=== PATIENT | female | born 1995 | race Caucasian/White ===

== ENCOUNTER 2017-06-13 19:04 | Emergency (ER) | payer BC, OTHER ==
[2017-06-13] MEDS ORDERED: ACETAMINOPHEN 325 MG TABLET PO ONE (20:35)
--- NOTE | 2017-06-13 20:39 | ER Document Report ---
ED Neck/Back Problem - General Chief Complaint: Back Pain Stated Complaint: BACK PAIN Time Seen by Provider: 06/13/17 20:34 Notes: 21-year-old female patient 11 weeks complaining of diffuse back pain. Pain is located in her thoracic and lumbar spine. Paraspinally. Denies any trauma. Denies any fever, chills, sweats. States that the pain in the middle of her back sometimes radiates up into her touch has wall at the back. Denies any shortness of breath. Denies any leg pain. No prior history of blood clots. Does not smoke. No family history of DVT or PE. - HPI Patient complains to provider of: Pain Onset: Last week Timing: Waxing and waning - Related Data Allergies/Adverse Reactions: No Known Allergies Allergy (Unverified 06/13/17 19:07) Past Medical History - General Information source: Patient - Social History Smoking Status: Never Smoker Cigarette use (# per day): No Frequency of alcohol use: None Drug Abuse: None Lives with: Spouse/Significant other Family History: None - Past Medical History Cardiac Medical History: Reports: None Pulmonary Medical History: Reports: None Neurological Medical History: Reports: None Endocrine Medical History: Reports: None Renal/ Medical History: Reports: None Malignancy Medical History: Reports: None GI Medical History: Reports: None Musculoskeltal Medical History: Reports None Review of Systems - Review of Systems Constitutional: denies: Fever, Malaise, Weakness Cardiovascular: denies: Chest pain, Palpitations, Heart racing, Dyspnea, Syncope , Dizziness Respiratory: Hurts to breathe. denies: Cough, Short of breath, Wheezing Gastrointestinal: denies: Abdominal pain, Diarrhea, Nausea, Vomiting Genitourinary: denies: Burning, Dysuria, Discharge, Flank pain, Hematuria Female Genitourinary: . denies: Vaginal discharge, Vaginal bleeding Musculoskeletal: Back pain, Muscle pain, Muscle stiffness Skin: No symptoms reported Neurological/Psychological: No symptoms reported Physical Exam - Vital signs Vitals: Temp Pulse Resp BP Pulse Ox 98.3 F 90 18 119/65 100 06/13/17 19:43 06/13/17 19:43 06/13/17 19:43 06/13/17 19:43 06/13/17 19:43 Interpretation: Normal - General General appearance: Appears well, Alert - HEENT Head: Normocephalic, Atraumatic Eyes: Normal Pupils: PERRL - Respiratory Respiratory status: No respiratory distress Chest status: Nontender Breath sounds: Normal Chest palpation: Normal - Cardiovascular Rhythm: Regular Heart sounds: Normal auscultation Murmur: No - Abdominal Inspection: Normal Distension: No distension Bowel sounds: Normal Tenderness: Nontender Organomegaly: No organomegaly - Back Back: Normal, Tender. No: Vertebra tenderness Notes: She does have some mild paraspinal tenderness mid thoracic spine all the way down to the lumbar paraspinal muscles bilaterally. No point tenderness of the vertebral processes. No obvious step-offs. - Extremities General upper extremity: Normal inspection, Nontender, Normal color, Normal ROM , Normal temperature General lower extremity: Normal inspection, Nontender, Normal color, Normal ROM , Normal temperature, Normal weight bearing. No: Brad's sign - Neurological Neuro grossly intact: Yes Cognition: Normal Orientation: AAOx4 Fertile Coma Scale Eye Opening: Spontaneous Fertile Coma Scale Verbal: Oriented Laura Coma Scale Motor: Obeys Commands Laura Coma Scale Total: 15 Speech: Normal Motor strength normal: LUE, RUE, LLE, RLE Sensory: Normal - Psychological Associated symptoms: Normal affect, Normal mood - Skin Skin Temperature: Warm Skin Moisture: Dry Skin Color: Normal Course - Re-evaluation Re-evalutation: 06/13/17 20:38 Is a well-appearing 21-year-old female with no past medical history who is 11 weeks . Complaining of some back pain. Advised patient that due to the fact that she is in her first trimester she should avoid taking any thing other than Tylenol. Do not feel compelled at this time to order any x-rays which would expose the fetus to radiation. Explained this to the patient that I do not feel patient needs x-rays at this time and she seems to comprehend this logic. Will give her some Tylenol, check her urine. Advised her to follow -up with her regular doctor. 06/13/17 21:07 Urinalysis shows possible UTI. In the setting of will elect to treat at this time with Macrobid. Patient advised to take all the medications as prescribed. - Vital Signs Vital signs: Temp Pulse Resp BP Pulse Ox 98.3 F 90 18 119/65 100 06/13/17 19:43 06/13/17 19:43 06/13/17 19:43 06/13/17 19:43 06/13/17 19:43 - Laboratory Laboratory results interpreted by me: 06/13/17 20:34 Urine Ketones TRACE H Urine Urobilinogen 2.0 H Ur Leukocyte Esterase MODERATE H Urine Ascorbic Acid 40 H Discharge - Discharge Clinical Impression: Back pain Qualifiers: Back pain location: low back pain Chronicity: acute Back pain laterality: bilateral Sciatica presence: without sciatica Qualified Code(s): M54.5 - Low back pain Urinary tract infection Qualifiers: Urinary tract infection type: site unspecified Hematuria presence: without hematuria Qualified Code(s): N39.0 - Urinary tract infection, site not specified Condition: Good Disposition: HOME, SELF-CARE Instructions: Low Back Pain ([facility]), Urinary Tract Infection ([facility]), Nitrofurantoin ([facility]) Prescriptions: Nitrofurantoin/Nitrofuran Mac [Macrobid 100 mg Capsule] 1 tab PO BID #20 capsule Forms: Return to Work
[2017-06-13 20:57] LABS: APPEARANCE,URINE CLOUDY; BILIRUBIN,URINE NEGATIVE (NEGATIVE); COLOR,URINE YELLOW; GLUCOSE, URINE NEGATIVE (NEGATIVE); KETONES,URINE TRACE mg/dL (NEGATIVE); LEUKOCYTE ESTERASE,URINE MODERATE (NEGATIVE); NITRITE,URINE NEGATIVE (NEGATIVE); PROTEIN,URINE NEGATIVE (NEGATIVE)
[2017-06-13] MEDS ORDERED: NITROFURANTOIN MONOHYD/M-CRYST 100 MG CAPSULE PO ONE (21:09)
[2017-06-13 21:26] VITALS: BP 113/58
== END 2017-06-13 21:26 | disposition home or self-care (01) ==
LOC: ER 19:04
DX: O23.41 Unspecified infection of urinary tract in pregnancy, first trimester (principal); O26.891 Other specified pregnancy related conditions, first trimester; R31.9 Hematuria, unspecified; R07.1 Chest pain on breathing; O99.89 Other specified diseases and conditions complicating pregnancy, childbirth and the puerperium; M54.6 Pain in thoracic spine; M54.5 Low back pain; Z3A.11 11 weeks gestation of pregnancy
CPT/HCPCS: 99283; 87086; 81001; J8499

== ENCOUNTER 2017-08-08 21:15 | Emergency (ER) | payer BC, OTHER ==
--- NOTE | 2017-08-08 23:49 | ER Document Report ---
ED General - General Chief Complaint: Vaginal Bleeding Stated Complaint: VAGINAL BLEEDING Time Seen by Provider: 08/08/17 23:40 Notes: Patient is a 21-year-old female presents with complaint of some vaginal spotting and . She is approximately 2 weeks . This is her first . She is on vitamins. She does not smoke or drink or do drugs. She says her blood type is A+. Patient says that she was helping her do some work around the house. She went to use the bathroom and when she wiped she noticed very small amount of blood. She has had no further bleeding. No abdominal pain. No abnormal vaginal discharge. No dysuria. No fevers. No other complaints at this time. She has had multiple ultrasounds during her which have shown an IUP. [facility]. TRAVEL OUTSIDE OF THE [place] IN LAST 30 DAYS: No - Related Data Allergies/Adverse Reactions: No Known Allergies Allergy (Unverified 06/13/17 19:07) Past Medical History - Social History Smoking Status: Never Smoker Frequency of alcohol use: None Drug Abuse: None Family History: None Renal/ Medical History: Denies: Hx Peritoneal Dialysis Review of Systems - Review of Systems Notes: My Normal Review Basic REVIEW OF SYSTEMS: CONSTITUTIONAL : Denies fever, chills, or sweats. Denies recent illness. RESPIRATORY: Denies cough, cold, or chest congestion. Denies shortness of breath, difficulty breathing, or wheezing. GASTROINTESTINAL: Denies abdominal pain. Denies nausea, vomiting, or diarrhea. Denies constipation. Last BM: GENITOURINARY: Denies difficulty urinating, painful urination, burning, frequency, or blood in urine. FEMALE GENITOURINARY: Some vaginal spotting. LMP: 18 weeks MUSCULOSKELETAL: Denies neck or back pain or joint pain or swelling. SKIN: Denies rash or skin lesions. NEUROLOGICAL: Denies altered mental status or loss of consciousness. Denies headache. Denies weakness or paralysis or loss of use of either side. Denies problems with gait or speech. Denies sensory or motor loss. ALL OTHER SYSTEMS REVIEWED AND NEGATIVE. Physical Exam - Vital signs Vitals: Temp Pulse Resp BP Pulse Ox 98.4 F 99 16 115/63 99 08/08/17 21:23 08/08/17 21:23 08/08/17 21:23 08/08/17 21:23 08/08/17 21:23 - Notes Notes: General Appearance: Well nourished, alert, cooperative, no acute distress, no obvious discomfort. Well-appearing. Vitals: reviewed, See vital signs table. Eyes: PERRL, EOMI, Conjuctiva clearmegaly Lungs: No wheezing, No rales, No rhonci, No accessory muscle use, good air exchange bilaterally. Heart: Normal rate, Regular rythm, No murmur, no rub Abdomen: Normal BS, soft, No rigidity, No abdominal tenderness, No guarding, no rebound, bedside ultrasound shows intrauterine with a heart rate of 164 bpm. Good movement. Extremities: strength 5/5 in all extremities, good pulses in all extremities, no swelling or tenderness in the extremities, no edema. Skin: warm, dry, appropriate color, no rash Neuro: speech clear, oriented x 3, normal affect, responds appropriately to questions. Course - Re-evaluation Re-evalutation: 08/08/17 23:58 Patient looks well. Bedside ultrasound shows intrauterine with good movement. She is 18 weeks by date. I do not feel any further workup is needed at this time. Her blood type is a positive. I informed her to avoid heavy lifting or sexual activity until cleared by her OB doctor. I encourage her call OB doctor Friday. I encouraged her return to ER immediately if she has recurrent bleeding, abdominal pain, fevers, or feels unwell. Patient agrees with plan will be discharged home. Dictation of this chart was performed using voice recognition software; therefore, there may be some unintended grammatical errors. - Vital Signs Vital signs: Temp Pulse Resp BP Pulse Ox 98.4 F 99 16 115/63 99 08/08/17 21:23 08/08/17 21:23 08/08/17 21:23 08/08/17 21:23 08/08/17 21:23 Discharge - Discharge Clinical Impression: Vaginal bleeding in Condition: Good Disposition: HOME, SELF-CARE Additional Instructions: Please avoid heavy lifting, sexual activities, or exertional activities until cleared by you OB doctor. please follow up with your OB doctor on Friday. please return to the ER immediately if you develop increase in bleeding, abdominal pain, or feel unwell.
[2017-08-09 00:02] VITALS: BP 110/48
== END 2017-08-09 00:05 | disposition home or self-care (01) ==
LOC: ER 21:15
DX: O46.92 Antepartum hemorrhage, unspecified, second trimester (principal); Z3A.18 18 weeks gestation of pregnancy
CPT/HCPCS: 99283

== ENCOUNTER 2017-10-22 20:44 | Outpatient (CLI) | payer BC, OTHER ==
[2017-10-22 21:20] LABS: APPEARANCE,URINE SLIGHTLY-CLOUDY; BILIRUBIN,URINE NEGATIVE (NEGATIVE); COLOR,URINE YELLOW; GLUCOSE, URINE NEGATIVE (NEGATIVE); KETONES,URINE NEGATIVE (NEGATIVE); LEUKOCYTE ESTERASE,URINE SMALL (NEGATIVE); NITRITE,URINE NEGATIVE (NEGATIVE); PROTEIN,URINE NEGATIVE (NEGATIVE); URINE SPECIFIC GRAVITY 1.021
[2017-10-22 21:37] LABS: URINE AMPHETAMINES SCREEN NEGATIVE; URINE BARBITURATES SCREEN NEGATIVE; URINE BENZODIAZEPINES SCREEN NEGATIVE; URINE COCAINE SCREEN NEGATIVE; URINE MARIJUANA (THC) SCREEN NEGATIVE; URINE METHADONE SCREEN NEGATIVE; URINE PHENCYCLIDINE SCREEN NEGATIVE
== END 2017-10-22 22:30 | disposition home or self-care (01) ==
LOC: LC 20:44
PROVIDERS: ATTEND Obstetrics & Gynecology Gynecology
PROC: 4A1HXCZ Monitoring of Products of Conception, Cardiac Rate, External Approach (ICD-10-PCS; principal; 2017-10-22)
DX: O26.893 Other specified pregnancy related conditions, third trimester (principal); E86.0 Dehydration; Z3A.29 29 weeks gestation of pregnancy
CPT/HCPCS: 80307; 81001

== ENCOUNTER 2017-11-07 21:58 | Outpatient (CLI) | payer BC, OTHER ==
[2017-11-07 22:31] LABS: APPEARANCE,URINE SLIGHTLY-CLOUDY; BILIRUBIN,URINE NEGATIVE (NEGATIVE); COLOR,URINE YELLOW; GLUCOSE, URINE NEGATIVE (NEGATIVE); KETONES,URINE NEGATIVE (NEGATIVE); LEUKOCYTE ESTERASE,URINE MODERATE (NEGATIVE); NITRITE,URINE NEGATIVE (NEGATIVE); PROTEIN,URINE NEGATIVE (NEGATIVE); URINE SPECIFIC GRAVITY 1.013; UROBILINOGEN,URINE NEGATIVE mg/dL (<2.0)
[2017-11-07 22:46] LABS: URINE AMPHETAMINES SCREEN NEGATIVE; URINE BARBITURATES SCREEN NEGATIVE; URINE BENZODIAZEPINES SCREEN NEGATIVE; URINE COCAINE SCREEN NEGATIVE; URINE MARIJUANA (THC) SCREEN NEGATIVE; URINE METHADONE SCREEN NEGATIVE; URINE PHENCYCLIDINE SCREEN NEGATIVE
== END 2017-11-07 22:39 | disposition home or self-care (01) ==
LOC: LC 21:58
PROVIDERS: ATTEND Obstetrics & Gynecology Gynecology
PROC: 4A1HXCZ Monitoring of Products of Conception, Cardiac Rate, External Approach (ICD-10-PCS; principal; 2017-11-07)
DX: O47.03 False labor before 37 completed weeks of gestation, third trimester (principal); Z3A.31 31 weeks gestation of pregnancy
CPT/HCPCS: 80307; 81001

== ENCOUNTER 2017-12-08 01:12 | Inpatient (IN) | payer BC, OTHER ==
[2017-12-08 01:59] LABS: AMNISURE (ROM) POSITIVE (NEGATIVE)
[2017-12-08 02:03] LABS: APPEARANCE,URINE SLIGHTLY-CLOUDY; BILIRUBIN,URINE NEGATIVE (NEGATIVE); COLOR,URINE YELLOW; GLUCOSE, URINE NEGATIVE (NEGATIVE); KETONES,URINE 20 mg/dL (NEGATIVE); LEUKOCYTE ESTERASE,URINE NEGATIVE (NEGATIVE); NITRITE,URINE NEGATIVE (NEGATIVE); PROTEIN,URINE 100 mg/dL (NEGATIVE); URINE SPECIFIC GRAVITY 1.013; UROBILINOGEN,URINE NEGATIVE mg/dL (<2.0)
[2017-12-08 02:49] LABS: ABSOLUTE EOSINOPHILS # (AUTO) 0.1 10^3/uL (0.0-0.6); ABSOLUTE LYMPHOCYTES (AUTO) 2.3 10^3/uL (0.5-4.7); ABSOLUTE MONOCYTES (AUTO) 0.6 10^3/uL (0.1-1.4); ABSOLUTE NEUT (AUTO) 6.6 10^3/uL (1.7-8.2); BASOPHILS % (AUTO) 0.2 % (0-2); EOSINOPHILS % (AUTO) 0.6 % (0-6); HEMOGLOBIN 12.5 g/dL (12.0-15.5); LYMPHOCYTES % (AUTO) 24.1 % (13-45); MEAN CORPUSCULAR HEMOGLOBIN 31.8 pg (27.0-33.4); MEAN CORPUSCULAR HGB CONC 35.8 g/dL (32.0-36.0); MEAN CORPUSCULAR VOLUME 89 fl (80-97); MONOCYTES % (AUTO) 6.5 % (3-13); PLATELET COUNT 174 10^3/uL (150-450); RED BLOOD COUNT 3.95 10^6/uL (3.72-5.28); RED CELL DISTRIBUTION WIDTH 13.3 % (11.5-14.0); SEGMENTED NEUTROPHILS % (AUTO) 68.6 % (42-78); TOTAL CELLS COUNTED % (AUTO) 100 %; WHITE BLOOD COUNT 9.7 10^3/uL (4.0-10.5)
[2017-12-08] MEDS: RINGERS SOLUTION,LACTATED 1,000 ML IV PRN ×3 (03:16→18:16)
[2017-12-08 03:28] LABS: URINE AMPHETAMINES SCREEN NEGATIVE; URINE BARBITURATES SCREEN NEGATIVE; URINE BENZODIAZEPINES SCREEN NEGATIVE; URINE COCAINE SCREEN NEGATIVE; URINE MARIJUANA (THC) SCREEN NEGATIVE; URINE METHADONE SCREEN NEGATIVE; URINE PHENCYCLIDINE SCREEN NEGATIVE
[2017-12-08] MEDS ORDERED: PENICILLIN G POTASSIUM 5,000,000 UNIT in DEXTROSE 5%-WATER 100 ML IV ONE (03:52)
[2017-12-08] MEDS ORDERED: PENICILLIN G-K 5 MILLION UNIT VIAL ONE (03:52)
--- NOTE | 2017-12-08 04:42 | RADIOLOGY REPORT (SQ) ---
EXAM DESCRIPTION: US LIMITED COMPLETED DATE/TME: 12/08/2017 00:00 CLINICAL HISTORY: 21 years, Female, srom unable to determine positon COMPARISON: None. TECHNIQUE: Limited obstetrical ultrasound. FINDINGS: VLADIMIR: 7.7 cm. heart rate of 147 bpm. Cervical length: Not provided. Placenta: Anterior. Scattered cystic structures identified in the placenta, largest measuring 3.0 cm. No definite retroplacental fluid collection identified. presentation: Breech IMPRESSION: 1. Single intrauterine with heart rate of 147 bpm. 2. Multiple heterogeneous foci within the placenta with hyperechoic borders and central cystic areas, the largest measuring 3.0 cm. 2011 [employer]- All Rights Reserved
[2017-12-08] MEDS ORDERED: CITRIC ACID/SODIUM CITRATE ORAL SOLN 15 ML UDCUP ONE (06:32)
[2017-12-08] MEDS ORDERED: CEFAZOLIN 1 GM/D5W RTU 2 GM/100 ML RTUPB IV ONE (06:32)
--- NOTE | 2017-12-08 06:39 | Admission Physical ---
Datetime Report Generated by CPN: 12/08/2017 06:39 CURRENT ADMISSION Chief Complaint: Suspected Ruptured Membranes Indication for Induction: Not Applicable Admit Impression : , Intrauterine Admit Plan: Initiate Section Protocol ALLERGIES Medication Allergies: No Medication Allergies: Latex, Natural Rubber (12/08/2017) Latex: Latex Allergies Food Allergies: none Environmental Allergies: none OBSTETRICAL HISTORY EDC: 01/04/2018 00:00 : 1 Para: 0 Term: 0 : 0 SAB: 0 IAB: 0 Ectopic: 0 Livin Cesareans: 0 VBACs: 0 Multiple Births: 0 Gestational Diabetes: No Rh Sensitization: No Incompetent Cervix: No IRA: No Infertility: No ART Treatment: No Uterine Anomaly: No IUGR: No Hx Previous C/S: No Macrosomia: No Hx Loss/Stillborn: No PIH: No Hx : No Placenta Previa/Abruption: No Depression/PP Depression: No PTL/PROM: Yes Post Hemorrhage: No Current Procedures: Ultrasound Obstetrical History Comments: G1: Current, SROM @36.1 SEE RECORDS Alcohol: No Marijuana : No Cocaine: No Other Illicit Drugs: No Cigarettes: Never Smoker. 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, anemia, dyslexia INFECTIOUS HISTORY Gonorrhea: No Genital Herpes: No Chlamydia: No Tuberculosis: No Syphilis: No Hepatitis: No HIV/AIDS Exposure: No Rash or Viral Illness: No HPV: No PHYSICAL EXAM General: Normal HEENT: Normal Neurologic: Normal Thyroid: Normal Heart: Normal Lungs: Normal Breast: Deferred Back: Normal Abdomen: Normal Genitourinary Exam: Normal Extremities: Normal DTRs: Normal Pelvic Type: Adequate FETUS A EGA: 36.1 Monitoring: External US Decelerations: None Admit Comment: breech procede with PLANS FOR LABOR AND DELIVERY Labor and Delivery: None Pain Management: Epidural Feeding Preference: Both Benefit of Breast Feed Discussed: Yes Circumcision: N/A INFORMED CONSENT Signature: with User ID: [email or web address]
[2017-12-08] MEDS ORDERED: PROPOFOL INJ 200 MG/20 ML VIAL IV ONE (06:52)
[2017-12-08] MEDS ORDERED: OXYTOCIN 10 UNIT/ML VIAL ONE (06:52)
[2017-12-08] MEDS ORDERED: MIDAZOLAM 2 MG/2 ML INJ ONE (06:53)
[2017-12-08] MEDS ORDERED: BUPIVACAINE HCL/DEX-WATER/PF 15 MG/2 ML AMPULE ONE (06:53)
[2017-12-08] MEDS ORDERED: FENTANYL CITRATE INJ/PF 100 MCG/2 ML AMPUL ONE (06:53)
[2017-12-08] MEDS ORDERED: EPHEDRINE SULFATE INJ 50 MG/1 ML AMPULE ONE (06:53)
[2017-12-08] MEDS ORDERED: FENTANYL CITRATE INJ/PF 100 MCG/2 ML AMPUL IV PRN ×3 (07:39)
[2017-12-08] MEDS ORDERED: DIPHENHYDRAMINE HCL 50 MG/ML VIAL IV PRN (07:39)
[2017-12-08] MEDS ORDERED: MEPERIDINE HCL/PF INJ 25 MG/1 ML DISP.SYRIN IV PRN (07:39)
[2017-12-08] MEDS ORDERED: PROMETHAZINE HCL INJ 25 MG/1 ML VIAL IV PRN ×2 (07:39→07:54)
[2017-12-08] MEDS ORDERED: OXYTOCIN/NORMAL SALINE 20 UNIT/1,000 ML RTUINJ IV PRN (07:54)
[2017-12-08] MEDS ORDERED: SIMETHICONE 80 MG TAB.CHEW PO PRN (07:54)
[2017-12-08] MEDS ORDERED: MEASLES,MUMPS&RUBELLA VACC/PF 0.5 ML VIAL SUBCUT PRN (07:54)
[2017-12-08] MEDS ORDERED: ACETAMINOPHEN 325 MG TABLET PO PRN (07:54)
[2017-12-08] MEDS ORDERED: DIPH/PERTUSS(ACELL)/TETANUS VAC/PF 0.5 ML SYR (>=10YO) IM PRN (07:54)
[2017-12-08] MEDS ORDERED: MORPHINE SULFATE 10 MG/ML INJ IM PRN (07:54)
--- NOTE | 2017-12-08 07:58 | PDOC DELIVERY SUMMARY ---
Delivery Summary - Maternal Risk Factors: Other Ruptured Membranes: AROM Fluids: Clear - Delivery Labor: Not In Labor Presentation: Breech Uterine Contraction Monitoring: External Support Person Present: Yes : Primary Placenta: Within Normal Limits Nuchal Cord: No - Medications Type of Anesthesia:: Spinal
[2017-12-08] MEDS ORDERED: IBUPROFEN 800 MG TABLET ONE (08:04)
[2017-12-08] MEDS ORDERED: OXYTOCIN/NORMAL SALINE 20 UNIT/1,000 ML RTUINJ ONE (08:04)
[2017-12-08] MEDS ORDERED: ACETAMINOPHEN 1,000 MG/100 ML RTUPB IV ONE (08:04)
[2017-12-08] MEDS ORDERED: KETOROLAC TROMETHAMINE INJ/PF 30 MG/1 ML SDV ONE (08:15)
[2017-12-08] MEDS ORDERED: DIPHENHYDRAMINE HCL 50 MG/ML VIAL ONE (08:34)
--- NOTE | 2017-12-08 09:41 | OPERATIVE REPORT E ---
Operative Report NAME: LISA MACKEY : 1995 AGE: 21Y DATE OF SURGERY: 12/08/2017 ROOM: LR200 PREOPERATIVE DIAGNOSIS: IUP at 36 weeks with breech presentation and premature rupture of membranes. POSTOPERATIVE DIAGNOSIS: IUP at 36 weeks with breech presentation and premature rupture of membranes. PROCEDURE: Primary low transverse and breech extraction of a viable female, 9 and 9 Apgars, weighing 6 pounds 6 ounces. SURGEON: Karan BOLIVAR M.D. ESTIMATED BLOOD LOSS: Less than 1000 mL. TISSUE REMOVED OR ALTERED: Placenta. ANESTHESIA: Spinal. DESCRIPTION OF PROCEDURE: The patient was placed in a supine position, rolled on her right side, prepped and draped in a sterile fashion. A Pfannenstiel incision was made extending through the subcutaneous tissue and fascia with sharp dissection. Fascia sharply divided. Rectus muscle was bluntly and sharply divided. Parietal peritoneum was entered with sharp dissection. Uterus nicked in the midline, extended bilaterally, and the incision was made through the anterior placenta. The was then delivered via breech extraction. Nose and mouth suctioned with bulb syringe. Cord was clamped. was passed from the table. Placenta was manually extracted. Uterus closed in 2 layers, the first with a running stitch of 0 Vicryl and a second Lembert stitch imbricating the first layer. There was a small amount of bleeding noted at one portion, which was controlled with figure of eight suture of 0 Vicryl. Hemostasis was noted. Fascia closed with #1 Vicryl and the skin was closed with subcu absorbable berta. The patient's urine remained clear throughout the procedure. She was taken to recovery in good condition and the infant was taken to the nursery in good condition. DICTATING PHYSICIAN: Karan BOLIVAR M.D. [id number] PHY#: [id number] ID: [id number] JOB#: [id number] ACCT: [id number] cc:Karan BOLIVAR M.D. >
[2017-12-08] MEDS: DOCUSATE SODIUM 100 MG CAPSULE PO SCH ×2 (11:14→18:50)
[2017-12-08] MEDS: PENICILLIN G POTASSIUM 2,500,000 UNIT in DEXTROSE 5%-WATER 50 ML IV SCH ×5 (11:14→23:48)
[2017-12-08] MEDS: PRENATAL VITAMIN W DHA CAPSULE PO SCH (11:14)
[2017-12-08] MEDS: KETOROLAC TROMETHAMINE INJ/PF 30 MG/1 ML SDV IV SCH ×2 (11:14→18:51)
[2017-12-08] MEDS ORDERED: IBUPROFEN 800 MG TABLET PO SCH (12:00)
[2017-12-08] MEDS ORDERED: DEXAMETHASONE SOD PHOSPHATE INJ 4 MG/1 ML VIAL ONE (16:51)
[2017-12-08] MEDS ORDERED: PHENYLEPHRINE HCL INJ/PF 10 MG/1 ML SDV ONE (16:51)
[2017-12-08] MEDS ORDERED: ONDANSETRON HCL INJ/PF 4 MG/2 ML SDV ONE (16:51)
[2017-12-08] MEDS: OXYCODONE-ACETAMINOPHEN 5-325 MG TABLET PO PRN (21:40)
[2017-12-09] MEDS: KETOROLAC TROMETHAMINE INJ/PF 30 MG/1 ML SDV IV SCH ×3 (02:21→18:16)
[2017-12-09 06:02] LABS: HEMATOCRIT 31.8 % (36.0-47.0); HEMOGLOBIN 11.4 g/dL (12.0-15.5); MEAN CORPUSCULAR HEMOGLOBIN 32.2 pg (27.0-33.4); MEAN CORPUSCULAR HGB CONC 35.8 g/dL (32.0-36.0); MEAN CORPUSCULAR VOLUME 90 fl (80-97); PLATELET COUNT 159 10^3/uL (150-450); RED BLOOD COUNT 3.55 10^6/uL (3.72-5.28); RED CELL DISTRIBUTION WIDTH 13.4 % (11.5-14.0); WHITE BLOOD COUNT 10.4 10^3/uL (4.0-10.5)
--- NOTE | 2017-12-09 09:22 | PDOC PROGRESS REPORT ---
Subjective-OB Progress Note for:: 12/09/17 Physical Exam (OB) Vital Signs: Temp Pulse Resp BP Pulse Ox 98.0 F 81 14 109/59 L 96 12/09/17 07:52 12/09/17 07:52 12/09/17 07:52 12/09/17 07:52 12/09/17 07:52 Intake & Output 12/08/17 12/09/17 12/10/17 06:59 06:59 06:59 Intake Total 1250 Output Total 3700 Balance -2450 Weight 76.7 kg - General General Appearance: Sleeping/easily aroused - Dressing Removed: No - silktape clean dry and intact Incision: Dressing - Lochia Lochia Amount: Small 10-25 ml Lochia Color: Rubra/Red - Abdomen Description: Soft, Round Hernia Present: No Bowel Sounds: Normoactive Flatus Presence: Absent Stool: No Fundal Description: Firm, Midline Fundal Height: u/u - u/2 Objective-Diagnostic Laboratory: 12/09/17 05:52 12/09/17 05:52 WBC 10.4 RBC 3.55 L Hgb 11.4 L Hct 31.8 L MCV 90 MCH 32.2 MCHC 35.8 RDW 13.4 Plt Count 159
[2017-12-09] MEDS: PRENATAL VITAMIN W DHA CAPSULE PO SCH (09:52)
[2017-12-09] MEDS: DOCUSATE SODIUM 100 MG CAPSULE PO SCH ×2 (09:53→18:16)
[2017-12-09] MEDS: OXYCODONE-ACETAMINOPHEN 5-325 MG TABLET PO PRN (19:17)
[2017-12-09] MEDS ORDERED: IBUPROFEN 800 MG TABLET PO ONE (20:00)
[2017-12-10] MEDS: IBUPROFEN 800 MG TABLET PO SCH ×3 (01:06→11:49)
[2017-12-10 09:08] VITALS: BP 117/65
[2017-12-10] MEDS ORDERED: PRENATAL VITAMIN W DHA CAPSULE PO SCH (10:00)
[2017-12-10] MEDS: PRENATAL VITAMIN W DHA CAPSULE PO SCH (10:07)
[2017-12-10] MEDS: DOCUSATE SODIUM 100 MG CAPSULE PO SCH (10:07)
--- NOTE | 2017-12-10 10:17 | PDOC DISCHARGE SUMMARY ---
Final Diagnosis Discharge Date: 12/10/17 - Final Diagnosis (1) Breech presentation Is this a current diagnosis for this admission?: Yes (2) Delivery by emergency caesarean section Is this a current diagnosis for this admission?: Yes (3) Premature rupture of membranes Is this a current diagnosis for this admission?: Yes Discharge Data - Discharge Medication Prescriptions: Ibuprofen [Motrin 800 mg Tablet] 800 mg PO Q8HP PRN #90 tablet PRN Reason: Oxycodone HCl/Acetaminophen [Percocet 5-325 mg Tablet] 1 tab PO Q4HP PRN #20 tablet PRN Reason: Home Medications: Vit/Iron Fum/Folic AC [ Tablet] 1 each PO DAILY 10/22/17 Ibuprofen [Motrin 800 mg Tablet] 800 mg PO Q8HP PRN #90 tablet 12/10/17 Oxycodone HCl/Acetaminophen [Percocet 5-325 mg Tablet] 1 tab PO Q4HP PRN #20 tablet 12/10/17 Vit/Dha [ Multi + Dha Capsule] 1 cap PO DAILY capsule Reason(s) for Admission: PROM Procedures: NST Intrapartum Procedure(s): : Low Cervical, Transverse - Diagnosis Test Laboratory: Temp Pulse Resp BP Pulse Ox 98.1 F 85 16 117/65 98 12/10/17 08:39 12/10/17 08:39 12/10/17 08:39 12/10/17 08:39 12/10/17 08:39 12/08/17 12/08/17 12/09/17 01:28 02:27 05:52 RBC 3.95 3.55 L Hgb 12.5 11.4 L Hct 35.0 L 31.8 L Urine Opiates Screen NEGATIVE - Discharge information/Instructions Discharge Activity: Balance Activity w/Rest, No Lifting/Push/Pulling, Pelvic Rest, No tub bath Discharge Diet: Regular Disposition: HOME, SELF-CARE Follow up with: [facility] in: 1, Weeks
[2017-12-10] MEDS: OXYCODONE-ACETAMINOPHEN 5-325 MG TABLET PO PRN (11:50)
== END 2017-12-10 15:35 | disposition home or self-care (01) | DRG 766 ==
LOC: LC 01:12 → LR 02:06 → 2S 10:15
PROVIDERS: ADMIT Obstetrics & Gynecology Gynecology; ATTEND Obstetrics & Gynecology Gynecology
PROC: 10D00Z1 Extraction of Products of Conception, Low, Open Approach (ICD-10-PCS; principal; 2017-12-08)
PROC: 3E0234Z Introduction of Serum, Toxoid and Vaccine into Muscle, Percutaneous Approach (ICD-10-PCS; 2017-12-08)
PROC: 4A1HXCZ Monitoring of Products of Conception, Cardiac Rate, External Approach (ICD-10-PCS; 2017-12-08)
DX: O32.1XX0 Maternal care for breech presentation, not applicable or unspecified (principal); O42.013 Preterm premature rupture of membranes, onset of labor within 24 hours of rupture, third trimester; O99.02 Anemia complicating childbirth; D64.9 Anemia, unspecified; Q79.8 Other congenital malformations of musculoskeletal system; Z91.040 Latex allergy status; Z23 Encounter for immunization; Z3A.36 36 weeks gestation of pregnancy; Z37.0 Single live birth
CPT/HCPCS: 1961; 36415; 76815; 80307; 81001; 84112; 85025; 85027; 86592; 86850; 86900; 86901; 90715; 94760; 94799; J0131; J0690; J1100; J1200; J1885; J2250; J2270; J2370; J2405; J2540; J2590; J2704; J3010; J3490; J7120

== ENCOUNTER 2017-12-11 22:17 | Emergency (ER) | payer BC, OTHER ==
[2017-12-11 22:34] VITALS: BP 123/63
[2017-12-12 00:01] LABS: ABSOLUTE EOSINOPHILS # (AUTO) 0.3 10^3/uL (0.0-0.6); ABSOLUTE LYMPHOCYTES (AUTO) 2.6 10^3/uL (0.5-4.7); ABSOLUTE MONOCYTES (AUTO) 0.4 10^3/uL (0.1-1.4); ABSOLUTE NEUT (AUTO) 4.6 10^3/uL (1.7-8.2); BASOPHILS % (AUTO) 0.5 % (0-2); EOSINOPHILS % (AUTO) 3.7 % (0-6); HEMATOCRIT 36.2 % (36.0-47.0); HEMOGLOBIN 12.5 g/dL (12.0-15.5); LYMPHOCYTES % (AUTO) 32.8 % (13-45); MEAN CORPUSCULAR HEMOGLOBIN 31.6 pg (27.0-33.4); MEAN CORPUSCULAR HGB CONC 34.6 g/dL (32.0-36.0); MEAN CORPUSCULAR VOLUME 91 fl (80-97); PLATELET COUNT 237 10^3/uL (150-450); RED BLOOD COUNT 3.97 10^6/uL (3.72-5.28); RED CELL DISTRIBUTION WIDTH 13.4 % (11.5-14.0); TOTAL CELLS COUNTED % (AUTO) 100 %; WHITE BLOOD COUNT 7.9 10^3/uL (4.0-10.5)
[2017-12-12 00:13] LABS: ANION GAP 11 (5-19); BLOOD UREA NITROGEN 12 mg/dL (7-20); CALCIUM 9.9 mg/dL (8.4-10.2); CARBON DIOXIDE 28 mmol/L (22-30); CHLORIDE 102 mmol/L (98-107); GLUCOSE 89 mg/dL (75-110); POTASSIUM 4.1 mmol/L (3.6-5.0); SODIUM 140.7 mmol/L (137-145)
--- NOTE | 2017-12-12 01:01 | ER Document Report ---
ED General - General Chief Complaint: Post Surgical Bleeding Stated Complaint: POST SURGICAL COMPLAINT Time Seen by Provider: 12/12/17 00:46 Notes: Patient is a 21-year-old female who comes to emergency department for chief complaint of concerns about her wound from her on 12/08/[address] Aranda , she states she was going upstairs earlier when she noticed the area was bleeding. She states there was bleeding again and she became concerned and came in to get it checked. She states she has had some vaginal bleeding, she thought it was more than usual but this has slowed down since. She denies any dizziness, passing out, fever, abdominal pain, or any other concerning development. TRAVEL OUTSIDE OF THE [place] IN LAST 30 DAYS: No - Related Data Allergies/Adverse Reactions: Latex, Natural Rubber Allergy (Verified 12/08/17 01:23) Past Medical History - General Information source: Patient - Social History Smoking Status: Never Smoker Chew tobacco use (# tins/day): No Frequency of alcohol use: None Drug Abuse: None Lives with: Family Family History: None Patient has suicidal ideation: No Patient has homicidal ideation: No Renal/ Medical History: Denies: Hx Peritoneal Dialysis Past Surgical History: Reports: Hx Section - Immunizations Hx Diphtheria, Pertussis, Tetanus Vaccination: Yes Review of Systems - Review of Systems Constitutional: No symptoms reported EENT: No symptoms reported Cardiovascular: No symptoms reported Respiratory: No symptoms reported Gastrointestinal: No symptoms reported Genitourinary: No symptoms reported Female Genitourinary: See HPI Musculoskeletal: No symptoms reported Skin: See HPI Hematologic/Lymphatic: No symptoms reported Neurological/Psychological: No symptoms reported Physical Exam - Vital signs Vitals: Temp Pulse Resp BP Pulse Ox 98.8 F 94 16 123/63 98 12/11/17 22:33 12/11/17 22:33 12/11/17 22:33 12/11/17 22:33 12/11/17 22:33 - Notes Notes: GENERAL: Alert, interacts well. No acute distress. HEAD: Normocephalic, atraumatic. EYES: Pupils equal, round, and reactive to light. Extraocular movements intact. ENT: Oral mucosa moist, tongue midline. NECK: Full range of motion. Supple. Trachea midline. LUNGS: Clear to auscultation bilaterally, no wheezes, rales, or rhonchi. No respiratory distress. HEART: Regular rate and rhythm. No murmur ABDOMEN: Lower abdominal horizontal scar/healing wound. Small area on the right several centimeters in length has small opening, recent bleeding, no surrounding erythema, fluctuance, drainage, or other abnormality noted. Nontender abdomen. EXTREMITIES: Moves all 4 extremities spontaneously. No edema, normal radial and dorsalis pedis pulses bilaterally. No cyanosis. BACK: no cervical, thoracic, lumbar midline tenderness. No saddle anesthesia, normal distal neurovascular exam. NEUROLOGICAL: Alert and oriented x3. Normal speech. [cranial nerves II through XII grossly intact]. PSYCH: Normal affect, normal mood. SKIN: Warm, dry, normal turgor. No rashes or lesions noted. Course - Re-evaluation Re-evalutation: CBC and chemistry unremarkable. Patient well-appearing on examination, soft nontender abdomen, wound has 1 small area where it has opened and appeared to have had some bleeding earlier but is otherwise unremarkable with no evidence of infection. Vital signs unremarkable. Patient sitting her bleeding is actually not bad and is expected, she is hoping that the wound can be checked/ treated and then she is asking to leave. Wound was actually closed with Steri- Strips and a dressing, discussed care of this, follow-up, return precautions with patient and mother. He states satisfaction and agreement. - Vital Signs Vital signs: Temp Pulse Resp BP Pulse Ox 98.8 F 94 16 123/63 98 12/11/17 22:33 12/11/17 22:33 12/11/17 22:33 12/11/17 22:33 12/11/17 22:33 - Laboratory Result Diagrams: 12/11/17 23:45 12/11/17 23:45 Discharge - Discharge Clinical Impression: section wound complication Condition: Stable Disposition: HOME, SELF-CARE Additional Instructions: Your laboratory evaluation does not show any concerning abnormality. The wound is not infected at this time, Steri-Strips have been placed to reinforce the wound, keep Steri-Strips on the area, follow-up closely with OB/ FISH[facility] MUSSEL for additional evaluation and management. Return for any concerning symptoms including spreading redness of the wound, fever, discolored discharge, severe abdominal pain, passing out, or any other concerning or worsening symptoms. Care of Steri-Strip Closure Your cut has been closed up with a special surgical tape. For this type of cut, it can replace stitches. You must protect the wound just as you would with stitches, however. For the first few days, keep the wound area completely dry. This also means you should avoid activity which makes you sweat. Do not move the area if motion stretches or wrinkles the strips. Don't allow the area to be bumped -- if bleeding occurs, the blood can make the strips loosen. The strips are somewhat waterproof. After a few days, you can shower shower. Do not remove the tape until it peels off by itself. At that time, the wound should be healed. Referrals: BRIANNA HARRELL MD [Primary Care Provider] - Follow up as needed
== END 2017-12-12 01:40 | disposition home or self-care (01) ==
LOC: ER 22:17
DX: O90.0 Disruption of cesarean delivery wound (principal); Z91.040 Latex allergy status
CPT/HCPCS: 36415; 80048; 85025; 99283